=== PATIENT | female | born 1975 | race African-American/Black ===

== ENCOUNTER 2021-06-27 12:19 | Observation (INO) | payer OTHER ==
[~2021-06-27] VITALS: Ht 170.2 cm; Wt 87.4 kg
--- NOTE | 2021-06-27 12:34 | NUR ---
EKG IN TRIAGE
[2021-06-27] MEDS ORDERED: OMNIPAQUE 350 MG/ML, 100ML BOTTLE ONE (13:10)
[2021-06-27] MEDS ORDERED: MORPHINE SULFATE 4 MG/ML, 1ML ONE ×2 (13:15→14:50)
[2021-06-27] MEDS ORDERED: ONDANSETRON 2MG/ML, 2ML ONE ×2 (13:15→18:17)
[2021-06-27] MEDS ORDERED: ONDANSETRON 2MG/ML, 2ML IVPush ONE (13:30)
[2021-06-27] MEDS: MORPHINE SULFATE 4 MG/ML, 1ML IVPush PRN ×2 (13:30→14:58)
[2021-06-27] MEDS ORDERED: SODIUM CHLORIDE FLUSH 10ML SYR IVF ONE (13:30)
[2021-06-27 13:53] LABS: ALANINE AMINOTRANSFERASE 14 U/L (12-78); ALBUMIN 3.9 g/dL (3.4-5.0); ANION GAP 6 mmol/L (5-15); BASOPHILS % (AUTO) 0 % (0-1); CALCIUM 9.2 mg/dL (8.5-10.1); CHLORIDE 104 mmol/L (98-107); CREATININE 0.57 mg/dL (0.55-1.02); EOSINOPHILS % (AUTO) 2 % (1-7); LYMPHOCYTES % (AUTO) 18 % (22-44); MEAN CORPUSCULAR HEMOGLOBIN 30.1 pg (27.0-34.8); MEAN CORPUSCULAR HGB CONC 33.9 g/dL (32.4-35.8); MEAN PLATELET VOLUME 7.4 fL (7.4-10.4); MONOCYTES % (AUTO) 6 % (2-9); NEUTROPHILS % (AUTO) 74 % (42-75); PLATELET COUNT 337 x10^3/uL (130-400); RED BLOOD COUNT 5.15 x10^6/uL (3.82-5.3); RED CELL DISTRIBUTION WIDTH 12.8 % (9.6-15.2)
[2021-06-27 13:56] LABS: ALKALINE PHOSPHATASE 72 U/L (45-117); BILIRUBIN,TOTAL 0.6 mg/dL (0.2-1.0); TOTAL PROTEIN 8.1 g/dL (6.4-8.2)
[2021-06-27 14:14] LABS: MICROSCOPIC INDICATED
--- NOTE | 2021-06-27 14:21 | NUR ---
PT TO CT NOW. PT STATESW PAIN IS AT AN ACCEPTABLE LEVEL. PT ENCOURAGED TO NOTIFY RN IF ANY CHANGES.
--- NOTE | 2021-06-27 15:12 | NUR ---
US AT BEDSIDE
[2021-06-27] MEDS ORDERED: CEFOTETAN PMX 1GM/50ML 50 ML IV ONE (16:00)
[2021-06-27] MEDS ORDERED: EPINEPHRINE 1 MG/ML, 1ML ONE (16:34)
[2021-06-27] MEDS ORDERED: BUPIVACAINE/PF 0.5% ONE (16:34)
[2021-06-27] MEDS ORDERED: FENTANYL PF 100 MCG/2ML ONE ×2 (17:15→17:51)
[2021-06-27] MEDS ORDERED: MIDAZOLAM 1 MG/ML, 2ML ONE (17:15)
[2021-06-27] MEDS ORDERED: DEXAMETHASONE 4 MG/ML, 1ML ONE (17:29)
[2021-06-27] MEDS ORDERED: LIDOCAINE 2%, 10ML ONE (17:29)
[2021-06-27] MEDS ORDERED: ONDANSETRON 2MG/ML, 2ML IVPush PRN (18:00)
[2021-06-27] MEDS ORDERED: ACETAMINOPHEN 325 MG TABLET PO PRN (18:00)
[2021-06-27] MEDS ORDERED: METHOCARBAMOL 1,000 MG in DEXTROSE 5% 100 ML IV PRN (18:00)
[2021-06-27] MEDS ORDERED: hydrALAzine 20 MG/ML, 1ML IV PRN (18:00)
[2021-06-27] MEDS ORDERED: HALOPERIDOL 5 MG/ML IV PRN (18:00)
[2021-06-27] MEDS ORDERED: LABETALOL 5MG/ML, 20ML IV PRN (18:00)
[2021-06-27] MEDS ORDERED: OXYcodone 5 MG/5 ML ORAL.SOL UDC PO PRN (18:00)
[2021-06-27] MEDS ORDERED: MEPERIDINE/PF 25MG/0.5ML IVPush PRN (18:00)
[2021-06-27] MEDS ORDERED: METOPROLOL 1 MG/ML, 5ML IV PRN (18:00)
[2021-06-27] MEDS ORDERED: HYDROmorphone 1 MG/ML, 1ML INJ IVPush PRN (18:00)
[2021-06-27] MEDS ORDERED: LORazepam 2 MG/ML, 1ML IVPush PRN (18:00)
[2021-06-27] MEDS ORDERED: PROMETHAZINE 25 MG/ML, 1ML IVPush PRN (18:00)
[2021-06-27] MEDS ORDERED: FENTANYL PF 100 MCG/2ML IV PRN (18:00)
[2021-06-27] MEDS ORDERED: PROMETHAZINE 25 MG SUPP PR PRN (18:00)
[2021-06-27] MEDS ORDERED: PROPOFOL 10 MG/ML, 20ML ONE (18:17)
[2021-06-27] MEDS ORDERED: CEFAZOLIN 1,000 MG ONE (18:17)
[2021-06-27] MEDS ORDERED: GLYCOPYRROLATE 0.2MG/1ML, 5ML ONE (18:17)
[2021-06-27] MEDS ORDERED: NEOSTIGMINE 1 MG/ML, 10ML ONE (18:17)
[2021-06-27] MEDS ORDERED: SUCCINYLCHOLINE 20 MG/ML, 10ML ONE (18:17)
[2021-06-27] MEDS ORDERED: ROCURONIUM 10MG/ML,5ML ONE (18:17)
[2021-06-27] MEDS ORDERED: OXYC-302 PO (18:26)
[2021-06-27] MEDS ORDERED: ACETAMINOPHEN 650 MG/20.3 ML UDC ONE (18:49)
[2021-06-27] MEDS ORDERED: OXYcodone/APAP 5/325MG TABLET PO PRN (20:00)
[2021-06-27] MEDS ORDERED: ONDANSETRON 4 MG TABLET PO PRN (20:00)
[2021-06-27] MEDS ORDERED: METF500T17 PO (20:01)
[2021-06-27] MEDS ORDERED: ASPI-963 PO (20:01)
[2021-06-27] MEDS ORDERED: CLON0.5T20 PO (20:01)
[2021-06-27] MEDS ORDERED: SERT50TA PO (20:02)
[2021-06-27] MEDS ORDERED: GLIP5TAB10 PO (20:02)
[2021-06-27] MEDS ORDERED: ATOR-2 PO (20:02)
[2021-06-27 20:03] VITALS: BP 156/90
[2021-06-28 00:17] VITALS: BP 129/87
[2021-06-28] MEDS: OXYcodone/APAP 5/325MG TABLET PO PRN ×3 (02:11→12:54)
[2021-06-28] MEDS ORDERED: ONDANSETRON 4 MG TABLET PO PRN (02:30)
[2021-06-28 06:23] VITALS: BP 98/82
[2021-06-28 12:25] VITALS: BP 134/75
[2021-06-28 12:44] VITALS: BP 124/70
== END 2021-06-28 13:37 | disposition home or self-care (01) ==
LOC: ED 13:54 → 4NE 19:26 → ED 20:03 → 4NE 06-28 00:55 → ED 06-28 00:58
PROVIDERS: ADMIT Colon & Rectal Surgery; ATTEND Colon & Rectal Surgery
DX: K80.00 Calculus of gallbladder with acute cholecystitis without obstruction (principal); Z20.822 Contact with and (suspected) exposure to COVID-19; I10 Essential (primary) hypertension; E11.9 Type 2 diabetes mellitus without complications; F17.200 Nicotine dependence, unspecified, uncomplicated; Z86.73 Personal history of transient ischemic attack (TIA), and cerebral infarction without residual deficits; Z90.710 Acquired absence of both cervix and uterus; Z79.899 Other long term (current) drug therapy
CPT/HCPCS: 36415; 47562; 74177; 80053; 81001; 83690; 85025; 87635; 88304; 93005; 96365; 96375; 96376; 99285; G0378; J0171; J0330; J0690; J1100; J2001; J2250; J2270; J2405; J2704; J2710; J3010; Q9967; S0020; 76700